=== PATIENT | male | born 2000 | race Caucasian/White ===

== ENCOUNTER 2018-01-21 20:11 | Emergency (ER) | payer BC ==
[2018-01-21 20:47] LABS: ABS Basophils 0.1 10^3/ul (0-0.2); ABS Eosinophils 0.2 10^3/ul (0-0.6); ABS Lymphocytes 1.9 10^3/ul (1.0-4.8); ABS Monocytes 0.9 10^3/ul (0-0.8); ABS Neutrophils 9.6 10^3/ul (1.5-7.7); ABS Nucleated RBC 0 10^3/ul; Eosinophil % 1.4 % (0-6); Hematocrit 47 % (42-52); Hemoglobin 16.3 g/dl (14.0-18.0); Lymphocyte % 14.8 % (25-47); Mean Corpuscular HGB Conc 35 g/dl (31-36); Mean Corpuscular Hemoglobin 30 pg (27-31); Mean Corpuscular Volume 85 fL (80-94); Mean Platelet Volume 7.9 um3 (7.4-10.4); Nucleated Red Blood Cells % 0.1; Platelet Count 248 10^3/ul (150-450); Red Blood Count 5.51 10^6/ul (4.0-5.4); Red Cell Distribution Width 13 % (10.5-15); White Blood Count 12.6 10^3/ul (3.5-10.8)
[2018-01-21 21:03] LABS: EGFR Non-African American 130.1 (>60)
[2018-01-21 23:54] LABS: Urine Appearance Clear; Urine Blood Negative (Negative); Urine Color Yellow; Urine Ketones Negative (Negative); Urine Protein Negative (Negative); Urine Urobilinogen Negative (Negative)
[2018-01-22 01:17] VITALS: BP 113/62
--- NOTE | 2018-01-22 04:52 | ED ---
Steven Ang Nikita, scribed for Reinaldo Venegas MD on 01/21/18 at 2021 . Psychiatric Complaint - HPI Summary HPI Summary: This patient is a 17 year old M BIBA to ED with a chief complaint of SI since [employer]. The patient sent an email to his professors at [employer] saying that this is why he might not be in class on Monday. The professor called the police who called EMS. The patient was found at home with his brother. The patient rates the pain 0/10 in severity. Symptoms aggravated by nothing. Symptoms alleviated by nothing. Patient reports SI with no plan and feeling overwhelmed with school. The patient does not currently have SI. PMHx of depression (duloxetine 60mg for 2 years). The patient takes marijuana (frequently, not every day) and drinks ETOH (not frequent, last time was this past week). - History Of Current Complaint Hx Obtained From: Patient Onset/Duration: Sudden Onset, Resolved Timing: Intermittent Episode Lasting Severity Currently: None Character: Depressed Aggravating Factor(s): Nothing Alleviating Factor(s): Nothing Related History: Positive For: Prior Psychiatric Issues - depression Has Suicidal: Reports: Thoughts. Denies: With A Plan - Allergies/Home Medications Allergies/Adverse Reactions: Allergies Allergy/AdvReac Type Severity Reaction Status Date / Time mold Allergy Sneezing Verified 01/21/18 20:50 Penicillins Allergy Hives Verified 01/21/18 20:50 PMH/Surg Hx/FS Hx/Imm Hx Endocrine/Hematology History: Denies: Hx Diabetes Cardiovascular History: Denies: Hx Coronary Artery Disease, Hx Hypertension Sensory History: Reports: Hx Contacts or Glasses - CONTACTS- WILL NOT WEAR DAY OF SURGERY Denies: Hx Hearing Aid Opthamlomology History: Reports: Hx Contacts or Glasses - CONTACTS- WILL NOT WEAR DAY OF SURGERY Psychiatric History: Reports: Hx Anxiety, Hx Depression Denies: Hx Eating Disorder, Hx of Violent Episodes Against Others - Surgical History Surgery Procedure, Year, and Place: FINGER SURGERY AT AGE 1 Hx Anesthesia Reactions: No Infectious Disease History: Denies: Traveled Outside the [place] in Last 30 Days - Family History Known Family History: Positive: Other Family History: asthma - Social History Alcohol Use: Occasionally Substance Use Type: Reports: Marijuana Smoking Status (MU): Never Smoked Tobacco Review of Systems Negative: Fever Positive: Depressed, Other - SI with no plan All Other Systems Reviewed And Are Negative: Yes Physical Exam - Summary Physical Exam Summary: Appearance: Well-appearing, Well-nourished Skin: Warm Eyes: Normal ENT: Normal Neck: Supple, nontender Respiratory: Clear to auscultation Cardiovascular: Normal S1, S2. No murmurs. Normal distal pulses in tibial and radial bilaterally. Abdomen: Soft, nontender Musculoskeletal: Normal, Strength/ROM Intact Neurological: Normal, A&Ox3 Psychiatric: Normal General: No acute distress Triage Information Reviewed: Yes Vital Signs On Initial Exam: Initial Vitals Temp Pulse Resp BP Pulse Ox 98.1 F 80 18 110/65 98 01/21/18 20:24 01/21/18 20:24 01/21/18 20:24 01/21/18 20:24 01/21/18 20:24 Vital Signs Reviewed: Yes Diagnostics - Laboratory Result Diagrams: 01/21/18 20:40 01/21/18 20:40 Lab Statement: Any lab studies that have been ordered have been reviewed, and results considered in the medical decision making process. Course/Dx - Course Assessment/Plan: MHE done at 0021. Pt has no active plan for hurting himself. He is not a danger to himself or others at this time. Spoke to mental health siding mechanic who agrees with plan. Pt agrees to and understands discharge instructions. - Differential Dx/Clinical Impression Differential Diagnosis/HQI/PQRI: Positive: Suicidal Ideation Provider Diagnosis: Suicidal ideation Discharge - Sign-Out/Discharge Documenting (check all that apply): Discharge - Discharge Plan Condition: Stable Disposition: HOME Forms: *School Release Referrals: Pramod Gerber MD [Primary Care Provider] - Additional Instructions: Per completion of a mental health evaluation, you are cleared for release and do not require inpatient psychiatric hospitalization at this time. Please go to nearest emergency room or call 911 if safety concerns arise or condition worsens. Contact [facility] to increase frequency of counseling and evaluate medications Emergency Resources: [facility]........[phone] Suicide Prevention and Crisis Services........................[phone] National Suicide Prevention Lifeline............................843-557-TZYK ( 1733) [facility].......................[phone] Alcoholics Anonymous...............................................[phone] [facility]..............[phone] [facility] Police..............................................[phone] The documentation as recorded by the Steven landon Nikita accurately reflects the service I personally performed and the decisions made by , Reinaldo Venegas MD.
== END 2018-01-22 01:17 | disposition home or self-care (01) ==
LOC: ED 20:11
DX: R45.851 Suicidal ideations (principal); F32.9 Major depressive disorder, single episode, unspecified
CPT/HCPCS: 36415; 80053; 80307; 80320; 80329; 81003; 84443; 85025; 99285; G0480

== ENCOUNTER 2020-01-30 17:56 | Emergency (ER) | payer BC ==
[2020-01-30 18:12] VITALS: BP 105/58
--- NOTE | 2020-01-30 18:24 | UC ---
Ear Complaint HPI - HPI Summary HPI Summary: 19-year-old male comes in with chief complaint of bilateral ear pain. Patient started 10 days ago with upper respiratory tract infection symptoms. He had a runny nose and a sore throat. Gradually started developing ear pressure. Has had a cough no shortness of breath. The chest congestion has improved. No fevers. No known contacts with Covid. Does have a history of cerumen impaction. - History of Current Complaint Chief Complaint: UCEar Stated Complaint: EARACHE Time Seen by Provider: 01/30/20 17:57 Pain Intensity: 0 - Allergies/Home Medications Allergies/Adverse Reactions: Allergies Allergy/AdvReac Type Severity Reaction Status Date / Time mold Allergy Sneezing Verified 01/30/20 18:01 Penicillins Allergy Hives Verified 01/30/20 18:01 Home Medications: Home Medications Fexofenadine (NF) [Susan 180 (NF)] 180 mg PO DAILY 08/04/15 [History Confirmed 01/30/20] ARIPiprazole TAB* [Abilify TAB*] 10 mg PO BEDTIME 01/30/20 [History Confirmed 01/30/20] DOXYcycline CAP(*) [DOXYcycline 100MG CAP(*)] 100 mg PO BID #20 cap 01/30/20 [Rx ] Duloxetine HCl [Drizalma Sprinkle] 80 mg PO DAILY 01/30/20 [History Confirmed ] PMH/Surg Hx/FS Hx/Imm Hx Previously Healthy: Yes - Surgical History Surgical History: Yes Surgery Procedure, Year, and Place: FINGER SURGERY AT AGE 2 - Family History Known Family History: Positive: Other Family History: asthma - Social History Alcohol Use: Occasionally Substance Use Type: Marijuana Substance Use Comment - Amount & Last Used: daily Smoking Status (MU): Never Smoked Tobacco Review of Systems All Other Systems Reviewed And Are Negative: Yes Constitutional: Positive: Negative Skin: Positive: Negative Eyes: Positive: Negative ENT: Positive: Sore Throat, Ear Ache, Nasal Discharge, Sinus Congestion Respiratory: Positive: Cough, Other - SEE HPI Cardiovascular: Positive: Negative Gastrointestinal: Positive: Negative Motor: Positive: Negative Neurovascular: Positive: Negative Musculoskeletal: Positive: Negative Neurological/Mental Status: Positive: Negative Psychological: Positive: Negative Is Patient Immunocompromised?: No Physical Exam Triage Information Reviewed: Yes Appearance: Well-Appearing, No Pain Distress, Well-Nourished Vital Signs: Initial Vital Signs Temp 98.3 F 01/30/20 18:03 Pulse 118 01/30/20 18:03 Resp 18 01/30/20 18:03 BP 105/58 01/30/20 18:03 Pulse Ox 96 01/30/20 18:03 Vital Signs Reviewed: Yes Eye Exam: Normal Eyes: Positive: Conjunctiva Clear ENT: Positive: Pharynx normal, Nasal congestion, Other - Bilateral cerumen impaction Neck: Positive: Supple Respiratory: Positive: Lungs clear, Normal breath sounds, No respiratory distress Cardiovascular: Positive: RRR Musculoskeletal: Positive: Strength Intact, ROM Intact Neurological: Positive: Alert Psychological: Positive: Age Appropriate Behavior Skin Exam: Normal Ear Complaint Course/Dx - Course Course Of Treatment: Both ears are irrigated by nursing with removal of the earwax bilaterally. Both TMs have clear fluid behind them are slightly bulging consistent with serous otitis media. Patient's had his upper respiratory tract infection symptoms for 10 days. Is allergic to penicillin we'll treat with doxycycline. Patient is to get reevaluated if not improving or worse. - Differential Dx/Diagnosis Provider Diagnosis: Impacted cerumen of both ears, Sinusitis, Acute serous otitis media of both ears Discharge ED - Sign-Out/Discharge Documenting (check all that apply): Patient Departure All imaging exams completed and their final reports reviewed: No Studies - Discharge Plan Condition: Stable Disposition: HOME Prescriptions: DOXYcycline CAP(*) [DOXYcycline 100MG CAP(*)] 100 mg PO BID #20 cap Patient Education Materials: Sinusitis (ED), Serous Otitis Media (ED) Referrals: Christoph Castaneda MD [Primary Care Provider] - Additional Instructions: FOLLOW UP WITH YOUR DOCTOR IF NOT COMPLETELY IMPROVED. GET REEVALUATED IF NOT IMPROVED OR WORSE OR ANY QUESTIONS OR CONCERNS. - Billing Disposition and Condition Condition: STABLE Disposition: Home
== END 2020-01-30 18:45 | disposition home or self-care (01) ==
LOC: UCEAST 17:56
DX: H61.23 Impacted cerumen, bilateral (principal); J32.9 Chronic sinusitis, unspecified; H65.03 Acute serous otitis media, bilateral; Z88.0 Allergy status to penicillin; Z91.09 Other allergy status, other than to drugs and biological substances
CPT/HCPCS: 99212; G0463